=== PATIENT | female | born 1990 | race Caucasian/White ===

== ENCOUNTER 2018-10-20 08:14 | Outpatient (CLI) | payer OTHER | END 2018-10-20 08:34 | disposition home or self-care (01) | LOC: NST 08:14 | DX: Z34.83 Encounter for supervision of other normal pregnancy, third trimester (principal) ==

== ENCOUNTER 2018-10-23 04:51 | Inpatient (IN) | payer OTHER ==
[~2018-10-23] VITALS: Ht 165.1 cm; Wt 91.6 kg
[2018-10-23] MEDS ORDERED: CLARITIN5 MG (05:11)
[2018-10-23] MEDS ORDERED: PRENATAL TABLE1 EACH PO (05:11)
== END 2018-10-25 17:43 | disposition home or self-care (01) | DRG 807 ==
LOC: LDR 04:51 → OB/GYN 04:51
PROVIDERS: ADMIT Specialist
PROC: 10E0XZZ Delivery of Products of Conception, External Approach (ICD-10-PCS; principal; 2018-10-23)
PROC: 10907ZC Drainage of Amniotic Fluid, Therapeutic from Products of Conception, Via Natural or Artificial Opening (ICD-10-PCS; 2018-10-23)
PROC: 3E033VJ Introduction of Other Hormone into Peripheral Vein, Percutaneous Approach (ICD-10-PCS; 2018-10-23)
PROC: 4A1HXCZ Monitoring of Products of Conception, Cardiac Rate, External Approach (ICD-10-PCS; 2018-10-23)
DX: O80 Encounter for full-term uncomplicated delivery (principal); Z37.0 Single live birth; Z3A.39 39 weeks gestation of pregnancy